=== PATIENT | male | born 1980 | race Caucasian/White ===

== ENCOUNTER 2016-06-24 17:10 | Emergency (ER) ==
[2016-06-24 17:17] VITALS: BP 142/91; TEMP 99.1; BMI 28.8
--- NOTE | 2016-06-24 17:33 | ED.PDOC ---
General ED Provider: Dr. JLUIS VICENTE Chief Complaint: Puncture Wound Stated Complaint: Stepped on 2 X 4 that had nail pointed up - went thru shoe into foot. Time Seen by Physician: 17:25 Mode of Arrival: Walk-In Information Source: Patient Primary Care Provider: ALESSANDRO SINGER Nursing and Triage Documentation Reviewed and Agree: Yes Review of Systems - Review Of Systems Constitutional: Reports: No symptoms Musculoskeletal: Reports: No symptoms Skin: Reports: Lesions (Ball of R foot - site consistent with small puncture wound) All Other Systems: Reviewed and Negative Past Medical History - Past Medical History Previously Healthy: Yes Endocrine: Reports: None Cardiovascular: Reports: None Respiratory: Reports: None Hematological: Reports: None Gastrointestinal: Reports: None Genitourinary: Reports: None Neuro/Psych: Reports: None Musculoskeletal: Reports: None Cancer: Reports: None - Surgical History General Surgical History: Reports: None - Family History Family History: Reports: Unknown - Social History Smoking Status: Former smoker Hx Substance Use: No Alcohol Screening: None - Immunizations Tetanus Shot up to Date: No Physical Exam - Physical Exam Appearance: Well-appearing Respiratory: Airway patent, Respirations nonlabored Musculoskeletal: Normal strength, ROM intact Skin: Warm, Dry, Normal color (Apparent site of puncture wound ball of R foot) Neurological: Sensation intact, Motor intact, Alert, Oriented Psychiatric: Affect appropriate, Mood appropriate Critical Care Note - Critical Care Note Total Time (mins): 7 Course - Course Orders, Labs, Meds: Orders Category Date Time Status Tetanus and Diphtheria Tox/Pf [Tenivac] MEDS 06/24/16 18:07 Discontinued 0.5 ml IM .ONCE ONE FOOT, RIGHT 3 VIEWS Stat RADS 06/24/16 17:31 Completed Medications Discontinued Medications Generic Name Dose Route Start Last Admin Trade Name Freq PRN Reason Stop Dose Admin Tetanus/Diphtheria Toxoids Adsorbed 0.5 ml 06/24/16 18:07 Tenivac IM 06/24/16 18:08 .ONCE ONE Vital Signs: Temp Pulse Resp BP Pulse Ox 06/24/16 17:11 99.1 F 100 H 20 142/91 H 96 Departure - Departure Time of Disposition: 18:13 Disposition: HOME SELF-CARE Discharge Problem: Puncture wound Instructions: Puncture Wound (ED) Condition: Good Pt referred to PMD for follow-up: Yes (call for appointment) Additional Instructions: Take antibiotic as prescribed; watch for signs of infection. Follow up with primary care as needed. Prescriptions: Cephalexin [Keflex] 500 mg PO 1-3XD #15 capsule Allergies/Adverse Reactions: Allergies No Known Allergies Allergy (Verified 06/24/16 17:18) Home Medications: Ambulatory Orders Cephalexin [Keflex] 500 mg PO 1-3XD #15 capsule 06/24/16 Disposition Discussed With: Patient
--- NOTE | 2016-06-24 17:59 | DI ---
EXAM: Right foot three views HISTORY: Puncture wound COMPARISON: None FINDINGS/IMPRESSION: The bones are normal. The joints are normal. Minimal soft tissue asymmetry td maribell aspect of the forefoot, may represent an area of soft tissue injury/puncture. Clinical correlat ion recommended. No radiopaque foreign body.
[2016-06-24] MEDS ORDERED: TENIVAC IM ONE (18:07)
== END 2016-06-24 18:45 | disposition home or self-care (01) ==
LOC: ED 17:10
DX: S91.331A Puncture wound without foreign body, right foot, initial encounter (principal); W45.0XXA Nail entering through skin, initial encounter
CPT/HCPCS: 90471; 99283

== ENCOUNTER 2016-07-05 15:34 | Outpatient (CLI) ==
--- NOTE | 2016-07-05 16:55 | US ---
Examination: Hussein-scale and color Doppler ultrasonographic evaluation of the penis. Comparison: None available. Reason for study: Mass. FINDINGS: Hussein scale and color Doppler images were taken of the penile parenchyma in the region of the patient's concern. No discrete mass lesion or abnormal vascularity is seen. Impression: No ultrasonographic evidence of discrete mass lesion or vascular abnormality is seen within the peni s.
== END 2016-07-05 15:35 | disposition home or self-care (01) ==
LOC: RAD 15:34
PROVIDERS: ATTEND Physician Assistant Medical
DX: R19.09 Other intra-abdominal and pelvic swelling, mass and lump (principal)

== ENCOUNTER 2017-02-02 18:54 | Emergency (ER) ==
[2017-02-02 19:02] VITALS: BP 127/86; TEMP 98; BMI 27.8
[2017-02-02] MEDS ORDERED: NORCO 5-325 PO STA (19:31)
[2017-02-02] MEDS ORDERED: MOTRIN PO STA (19:31)
--- NOTE | 2017-02-02 19:44 | ED.PDOC ---
General ED Provider: Dr. RK LICONA Chief Complaint: Hand Pain/Injury Stated Complaint: Patient states that while at [employer] while trying to lift some piece of wood it rolled and hit his righth hand yesterday. Pain is worse today. Took Tylenol# 3 this morning. Time Seen by Physician: 19:30 Mode of Arrival: Walk-In Information Source: Patient Exam Limitations: No limitations Primary Care Provider: ALESSANDRO SINGER Nursing and Triage Documentation Reviewed and Agree: Yes Musculoskeletal Complaint Exam - Hand/Wrist Complaint/Exam Location of Pain: Reports: Right, Hand Mechanism of Injury: Reports: Trauma Onset/Duration: yesterday Symptoms Are: Still present Onset of Pain: Reports: Immediate Initial Severity: Severe Current Severity: Moderate Location: Reports: Discrete (5th metacarpal ) Character: Reports: Aching, Throbbing Alleviating: Reports: None Aggravating: Reports: Movement Associated Signs and Symptoms: Reports: Swelling, Bruising Dominant Hand: Right Related Surgical History: Reports: None Hand/Wrist Findings: Present: Swelling Tenderness: Present: Metacarpal Compartment Syndrome Risk Factors: Present: Pain. Absent: Paralysis, Pallor, Pulselessness, Paresthesias Hand Picture: 1 - pain tenderness and bruizing Differential Diagnoses: Contusion, Closed Fracture, Sprain, Strain Review of Systems - Review Of Systems Constitutional: Reports: No symptoms Eyes: Reports: No symptoms Ears, Nose, Mouth, Throat: Reports: No symptoms Respiratory: Reports: No symptoms Cardiac: Reports: No symptoms GI: Reports: No symptoms : Reports: No symptoms Musculoskeletal: Reports: Joint pain, Joint swelling, Muscle stiffness Skin: Reports: Bruising Neurological: Reports: No symptoms All Other Systems: Reviewed and Negative Past Medical History - Past Medical History Previously Healthy: Yes Endocrine: Reports: None Cardiovascular: Reports: None Respiratory: Reports: None Hematological: Reports: None Gastrointestinal: Reports: None Genitourinary: Reports: None Neuro/Psych: Reports: None Musculoskeletal: Reports: None Cancer: Reports: None - Surgical History General Surgical History: Reports: None - Family History Family History: Reports: Unknown - Social History Smoking Status: Current every day smoker, Heavy tobacco smoker Hx Substance Use: No Alcohol Screening: None Physical Exam - Physical Exam Appearance: Well-appearing, No pain distress, Well-nourished Eyes: NETTE, EOMI, Conjunctiva clear ENT: Ears normal, Nose normal, Oropharynx normal Respiratory: Airway patent, Breath sounds clear, Breath sounds equal, Respirations nonlabored Cardiovascular: RRR, Pulses normal, No rub, No murmur GI/: Soft, Nontender, No masses, Bowel sounds normal, No Organomegaly Musculoskeletal: Limited ROM Skin: Warm, Dry, Normal color Neurological: Sensation intact, Motor intact, Reflexes intact, Cranial nerves intact, Alert, Oriented Psychiatric: Anxious Interpretation - Radiology Interpretation Radiology Interpretation By: ED Physician Radiology Results: Negative Exam Interpreted: Other (hand x-ray ) Critical Care Note - Critical Care Note Total Time (mins): 0 Course - Course Orders, Labs, Meds: Orders Category Date Time Status Splint [ED SPLINT APPLICATION] .ONCE EMERGENCY 02/02/17 20:53 Ordered Hydrocodone Bit/Acetaminophen [[place] 5-325] MEDS 02/02/17 19:31 Discontinued 1 tab PO ONCE STA Ibuprofen [Motrin] MEDS 02/02/17 19:31 Discontinued 800 mg PO ONCE STA HAND, RIGHT 3 VIEWS Stat RADS 02/02/17 19:28 Taken Medications Discontinued Medications Generic Name Dose Route Start Last Admin Trade Name Olayinka PRN Reason Stop Dose Admin Acetaminophen/Hydrocodone Bitart 1 tab 02/02/17 19:31 02/02/17 19:51 [place] 5-325 PO 02/02/17 19:32 1 tab ONCE STA Administration Ibuprofen 800 mg 02/02/17 19:31 02/02/17 19:50 Motrin PO 02/02/17 19:32 800 mg ONCE STA Administration Vital Signs: Temp Pulse Resp BP Pulse Ox 02/02/17 18:54 98.0 F 87 20 127/86 96 Departure - Departure Time of Disposition: 20:51 Disposition: HOME SELF-CARE Discharge Problem: Right wrist sprain Qualifiers: Encounter type: initial encounter Qualified Code(s): S63.501A - Unspecified sprain of right wrist, initial encounter Instructions: Wrist Sprain (ED) Condition: Fair Pt referred to PMD for follow-up: Yes Additional Instructions: Take Motrin as needed Follow up with PCP in 3-5 days Rest Use splint for comfort to allow it to heal. Prescriptions: Ibuprofen [Motrin] 600 mg PO Q6H PRN #30 tablet PRN Reason: Analgesia Allergies/Adverse Reactions: Allergies No Known Allergies Allergy (Verified 02/02/17 19:02) Home Medications: Ambulatory Orders Dextroamphetamine/Amphetamine [Adderall 10 mg Tablet] 10 mg PO DAILY 02/02/17 Ibuprofen [Motrin] 600 mg PO Q6H PRN #30 tablet 02/02/17 Disposition Discussed With: Patient, Family
--- NOTE | 2017-02-03 07:42 | DI ---
EXAM: Radiographs, right hand HISTORY: Initial presentation for right hand trauma at the fifth metacarpal. COMPARISON: None available. TECHNIQUE: Three views. FINDINGS/IMPRESSION: Old healed fracture deformity of the fifth metacarpal noted. No acute fracture or dislocation identi fied. No localized soft tissue abnormality detected
== END 2017-02-02 20:58 | disposition home or self-care (01) ==
LOC: ED 18:54
DX: S63.501A Unspecified sprain of right wrist, initial encounter (principal); W22.8XXA Striking against or struck by other objects, initial encounter; Y92.512 Supermarket, store or market as the place of occurrence of the external cause; F17.210 Nicotine dependence, cigarettes, uncomplicated
CPT/HCPCS: 99283

== ENCOUNTER 2022-09-23 09:52 | Observation (INO) ==
[2022-09-23 10:25] LABS: BASOPHILS % (AUTO) 0.2 % (0.0-3.0); EOSINOPHILS # (AUTO) 0.2 K/ul (0.0-0.7); EOSINOPHILS % (AUTO) 1.6 % (0.0-7.0); HEMATOCRIT 43.7 % (42.0-52.0); IMMATURE GRANULOCYTE % (AUTO) 0.3 % (0.0-5.0); LYMPHOCYTES # (AUTO) 2.6 K/uL (0.60-3.4); LYMPHOCYTES % (AUTO) 23.2 (10.0-50.0); MEAN CORPUSCULAR HEMOGLOBIN 29.5 pg (27.0-31.0); MEAN CORPUSCULAR HGB CONC 34.3 (31.8-35.4); MONOCYTES # (AUTO) 0.8 K/uL (0.4-2.0); MONOCYTES % (AUTO) 7.3 (0-10); NEUTROPHILS # (AUTO) 7.4 K/ul (2.0-6.9); NEUTROPHILS % (AUTO) 67.4 % (42.2-75.2); PLATELET COUNT 218 10^3/uL (140-440); RDW COEFFICIENT OF VARIATION 13.1 % (11.6-14.8); RED BLOOD COUNT 5.08 10^6/ul (4.70-6.10); WHITE BLOOD COUNT 11.04 K/ul (4.2-10.2)
--- NOTE | 2022-09-23 10:31 | ED.PDOC ---
General ED Provider: Dr. DAVION LUCIANO MD Chief Complaint: Arrhythmia Stated Complaint: fast heart rate on my apple watch Time Seen by Provider: 09/23/22 10:08 Information Source: Patient Primary Care Provider: TAWNYA MACKEY Nursing and Triage Documentation Reviewed and Agree: Yes Does patient meet sepsis criteria?: No System Inflammatory Response Syndrome: Not Applicable Sepsis Protocol: For patient's 13 years and over: Temp is 96.8 and below OR 101 and greater Pulse >90 BPM Resp >20/minute Acutely Altered Mental Status Are patient's symptoms suggestive of a new infection, such as: -Pneumonia -Skin, Soft Tissue -Endocarditis -UTI -Bone, Joint Infection -Implantable Device -Acute Abdominal Infection -Wound Infection -Meningitis -Blood Stream Catheter Infection -Unknown Cardiovascular Complaint Exam Palpitations Complaint/Exam Onset/Duration: one hour Symptoms Are: Resolved Timing: Intermittent Initial Severity: Moderate Current Severity: None Aggravating: Reports Exertion Alleviating: Reports Rest Associated Signs and Symptoms: Denies Lightheadedness, Syncope, Chest pain, Shortness of breath, Diaphoresis, Nausea or Vomiting Cardiac Risk Factors: Reports Smoking, Family history and Prior OR Pulmonary Embolism Risk Factors: Reports Smoking Review of Systems Review Of Systems Constitutional: Reports No symptoms Cardiac: Reports Palpitations All Other Systems: Reviewed and Negative [facility] Medical History Hypercholesteremia E78.00 - Pure hypercholesterolemia, unspecified (ICD-10) Hypertension I10 - Essential (primary) hypertension (ICD-10) Kidney stones N20.0 - Calculus of kidney (ICD-10) Family History FATHER Heart attack BROTHER LVAD (left ventricular assist device) present BROTHER Diabetes Social History Smoking and tobacco status: Current every day smoker Tobacco type: cigarettes Smoking packs per day: 1.2 Smoking cigarettes per day: 24.0 Years smoked: 35 Smoking pack-years: 42.00 Tobacco: How many years used: 35 Alcohol intake: never Substance use type: does not use Physical Exam Physical Exam Appearance: Reports Well-appearing Ill-appearing: None Pain Distress: None Eyes: Reports NETTE and EOMI ENT: Reports Ears normal and Nose normal Neck: Supple Respiratory: Reports Airway patent, Breath sounds clear and Breath sounds equal Cardiovascular: Reports RRR, Pulses normal, No rub and No murmur GI/: Reports Soft, Nontender and No masses Musculoskeletal: Reports Normal strength and ROM intact Skin: Reports Warm and Normal color Neurological: Reports Sensation intact and Motor intact Psychiatric: Reports Affect appropriate Interpretation EKG Interpretation Time of EKG #1: 10:06 Rate: Normal Rhythm: Sinus Ectopy: None [place]: [place] Interpretation: normal pr, qrs interval, no signs of acute ischemia Critical Care Note Critical Care Note Total Critical Care Time (mins): 0 Course Course 09/23/22 10:21 09/23/22 10:21 Orders, Labs, Meds: Lab Review 09/23/22 10:21 WBC 11.04 H RBC 5.08 Hgb 15.0 Hct 43.7 MCV 86.0 MCH 29.5 MCHC 34.3 RDW Coeff of Jose Elias 13.1 Plt Count 218 Immature Gran % (Auto) 0.3 Neut % (Auto) 67.4 Lymph % (Auto) 23.2 [place] % (Auto) 7.3 Eos % (Auto) 1.6 Baso % (Auto) 0.2 Neut # (Auto) 7.4 H Lymph # (Auto) 2.6 [place] # (Auto) 0.8 Eos # (Auto) 0.2 Baso # (Auto) 0.0 Immature Gran # (Auto) 0.0 Sodium 138.2 Potassium 3.82 Chloride 106.8 Carbon Dioxide 24.1 Anion Gap 11.12 BUN 8.4 L Creatinine 0.87 Estimated GFR (MDRD) 97.00 BUN/Creatinine Ratio 9.65 Glucose 129.6 H Calcium 8.51 Total Bilirubin 0.36 AST 25.1 ALT 23.7 Alkaline Phosphatase 91.3 Total Creatine Kinase 134.2 CK-MB (CK-2) 1.120 CK-MB (CK-2) % 0.8300 Troponin I < 0.012 Total Protein 7.36 Albumin 4.38 Globulin 2.98 Albumin/Globulin Ratio 1.46 Orders Category Date Time Status ADMIT OBSERVATION [PLACE PATIENT OBSERVATION] .TO ADMISSION 09/23/22 11:58 Active MEDSURG (MONITORED BED) EKG-(ED ONLY) Stat CARDIO 09/23/22 10:02 Completed TELEMETRY MONITORING TELE CARE 09/23/22 11:58 Active CBC W/ AUTO DIFF Stat LAB 09/23/22 10:21 Completed COMPREHENSIVE METABOLIC PANEL Stat LAB 09/23/22 10:21 Completed CREATINE KINASE Stat LAB 09/23/22 10:21 Completed TROPONIN I Stat LAB 09/23/22 10:21 Completed Aspirin [Aspirin Chewable] Meds 09/23/22 10:44 Discontinued 324 mg PO ONCE ONE Hydralazine HCl Meds 09/23/22 11:31 Discontinued 10 mg IM ONCE STA Hydralazine HCl [Apresoline] Meds 09/23/22 10:45 Discontinued 50 mg PO ONCE STA CHEST, 1V AP ONLY Stat RADS 09/23/22 10:09 Completed Medications Generic Name Dose Route Start Last Admin Trade Name Freq PRN Reason Stop Dose Admin Acetaminophen 650 mg 09/23/22 17:22 09/23/22 17:41 Acetaminophen 325 Mg Tablet PO 650 mg Q6H PRN Administration pain Amlodipine Besylate 10 mg 09/23/22 21:00 09/23/22 20:39 Amlodipine Besylate 5 Mg Tablet PO 10 mg DAILY SURINDER Administration Sodium Chloride 1 syr 09/23/22 21:00 09/23/22 20:50 0.9% Sodium Chloride 10 Ml Disp.Syrin IVF 1 syr Q8HR SURINDER Administration Discontinued Medications Generic Name Dose Route Start Last Admin Trade Name Freq PRN Reason Stop Dose Admin Aspirin 324 mg 09/23/22 10:44 09/23/22 10:50 Aspirin 81 Mg Tab.Chew PO 09/23/22 10:45 324 mg ONCE ONE Administration Hydralazine HCl 50 mg 09/23/22 10:45 09/23/22 10:50 Hydralazine Hcl 50 Mg Tablet PO 09/23/22 10:46 50 mg ONCE STA Administration Hydralazine HCl 10 mg 09/23/22 11:31 09/23/22 11:35 Hydralazine Hcl 20 Mg/Ml Sdv IM 09/23/22 11:32 20 mg ONCE STA Administration Vital Signs: Temp Pulse Resp BP Pulse Ox 09/23/22 09:55 97.9 F 84 18 158/104 H 98 41 yo male came to ER for palpitations. Patient was moving some heavy objects and exerted himself and his apple watch alarmed for heart rate 150s. No chest pa in. Patient smokes 1/2 PPD and has FH of OR his father at age 35 and his brother at age 22. said that patient's mother told her he had OR in his 20s but patient denies. No chest pain. patient had echo and stress test done last year which was normal. Labs and CXR are unremarkable. Heartscore 1. case discussed with hospitalist Sreedhar to admit the patient under observation to trend troponin, she agreed to admit the patient under her services. DUANE Risk Score DUANE Risk Score: Risk Score Odds of by 30D 0 0.1 (0.1-0.2) 1 0.3 (0.2-0.3) 2 0.4 (0.3-0.5) 3 0.7 (0.6-0.9) 4 1.2 (1.0-1.5) 5 2.2 (1.9-2.6) 6 3.0 (2.5-3.6) 7 4.8 (3.8-6.1) Discharge Plan Discharge Patient Disposition: ADMITTED INPATIENT Discharge Problem: Palpitation, Chest pain Did you review [place] [employer] for ALL controlled substances?: Not Applicable ED Provider: DAVION LUCIANO Condition: Stable Physician Progress Note: []
[2022-09-23 10:36] LABS: ALANINE AMINOTRANSFERASE 23.7 U/L (0-50); ALBUMIN 4.38 g/dL (3.5-5.0); ALKALINE PHOSPHATASE 91.3 U/L (38-126); ASPARTATE AMINO TRANSFERASE 25.1 U/L (17-59); BILIRUBIN,TOTAL 0.36 mg/dL (0.2-1.3); BLOOD UREA NITROGEN 8.4 mg/dL (9-20); CALCIUM 8.51 mg/dL (8.4-10.2); CARBON DIOXIDE 24.1 mmol/L (22-30.0); CHLORIDE 106.8 mmol/L (98-107); CREATINE KINASE 134.2 U/L (55-170); CREATININE 0.87 mg/dL (0.60-1.10); GLUCOSE 129.6 mg/dL (74-106); POTASSIUM 3.82 mmol/L (3.5-5.1); SODIUM 138.2 mmol/L (134.5-145); TOTAL PROTEIN 7.36 g/dL (6.3-8.2)
[2022-09-23] MEDS ORDERED: ASPIRIN CHEWABLE PO ONE (10:44)
[2022-09-23] MEDS ORDERED: APRESOLINE PO STA (10:45)
--- NOTE | 2022-09-23 10:45 | DI ---
EXAM: CHEST RADIOGRAPH (1 VIEW) TECHNIQUE: Frontal Chest Radiograph. HISTORY: Pain COMPARISON: 12/23/2021. FINDINGS: Lines, Tubes, Devices: None Lungs and Pleura: No focal consolidation. No pleural effusion. No pneumothorax. Cardiac silhouette: Normal. Bones: No acute abnormality. IMPRESSION: No acute radiographic abnormality.
[2022-09-23 10:53] LABS: TROPONIN I < 0.012 ng/ml (0.0000-0.120)
[2022-09-23] MEDS ORDERED: HYDRALAZINE HCL IM STA (11:31)
[2022-09-23 12:48] VITALS: BMI 29.5
--- NOTE | 2022-09-23 13:19 | PCM ---
Date of Service Date Seen by Provider: 09/23/22 Time Seen by Provider: 13:19 Admit Day/Time Admission Date: 09/23/22 Admission Time: 11:58 Reason for Admission Chief Complaint: CHEST PAIN, PALPITATIONS Hospital Provider Hospital Provider: SREEDHAR ROTH PA-C, [facility] [place] Primary Care Physician Primary Care Physician: TAWNYA MACKEY History of Present Illness History of Present Illness: Patient is a 41-year-old male with past medical history of hypertension who presented to the ER with chief complaint of palpitations. He states that he was moving concrete blocks about 30 of them when his Apple Watch indicated that his heart rate was 150. He denies feeling any palpitations but states he may have had some chest tightness during this. He also had some low back pain while doing this. His boss made him get evaluated. He states his heart rate remained elevated for about 35 minutes. In the ER he was noted to have normal vitals. Labs and chest x-ray normal. However patient has a very significant family history and the ER provider felt he needed to be observed. On my evaluation the patient is lying in bed comfortably. He denies any chest pain palpitation shortness of breath. He states this is never happened to him. He states he has a history of hypertension that has been uncontrolled recently on his current regimen. He has had a recent stress test and echo within the last 6 months at [facility]. He does have a very significant family history. He states that his dad started having heart attacks in his 30s. He states that his brother started having heart issues in his 20s and recently in his 40s. He states that he had an LVAD. He does not know details on the heart condition. Patient smokes half pack a day. States he has a history of hyperlipidemia but he was unable to tolerate a statin due to muscle pain. Will admit to observation and trend tropes and EKGs. Case Discussed With Case Discussed With: Patient's case was discussed with the ER Physicians, Dr. John Sayed [facility] Medical History Hypercholesteremia E78.00 - Pure hypercholesterolemia, unspecified (ICD-10) Hypertension I10 - Essential (primary) hypertension (ICD-10) Kidney stones N20.0 - Calculus of kidney (ICD-10) Family History FATHER Heart attack BROTHER LVAD (left ventricular assist device) present BROTHER Diabetes Social History Smoking and tobacco status: Current every day smoker Tobacco type: cigarettes Smoking packs per day: 1.2 Smoking cigarettes per day: 24.0 Years smoked: 35 Smoking pack-years: 42.00 Tobacco: How many years used: 35 Alcohol intake: never Substance use type: does not use Allergies Allergies Allergy/AdvReac Type Severity Reaction Status Date / Time No Known Allergies Allergy Verified 09/23/22 09:57 Current Medications Home Medications amlodipine 5 mg tablet 7.5 mg PO BEDTIME 09/23/22 [History Confirmed 09/23/22 Last Taken Unknown] Home Discontinued Medications Aspirin (Aspirin 81 Mg Tab.Chew) 324 mg PO ONCE ONE Stop: 09/23/22 10:45 Last Admin: 09/23/22 10:50 Dose: 324 mg Hydralazine HCl (Hydralazine Hcl 50 Mg Tablet) 50 mg PO ONCE STA Stop: 09/23/22 10:46 Last Admin: 09/23/22 10:50 Dose: 50 mg Hydralazine HCl (Hydralazine Hcl 20 Mg/Ml Sdv) 10 mg IM ONCE STA Stop: 09/23/22 11:32 Last Admin: 09/23/22 11:35 Dose: 20 mg Review of Systems Constitutional: Denies Fever, Weakness or Sweats Head: Reports Normocephalic and Atraumatic Eyes: Denies Vision Changes Ears: Denies Pain or Drainage Nose: Denies Post Nasal Drip or Congestion Mouth: Denies Sores Throat: Denies Sore Throat or Difficulty Swallowing Cardiovascular: Reports Chest Pressure; Denies Chest pain, Edema or Palpitations (+increased HR) Respiratory: Denies Cough or Shortness of air Gastrointestinal: Denies Nausea, Vomiting or Abdominal pain Genitourinary: Denies Dysuria Musculoskeletal: Denies Muscle Pain Dermatologic: Denies Rashes Neurological: Denies Headache, Dizziness, Syncope, Loss of Conciousness or Seizure Psychiatric: Denies Depression or Anxiety Physical examination Most Recent Vital Signs: Most Recent Vital Signs Temperature 97.8 F 09/23/22 12:34 Temperature Source Oral 09/23/22 12:34 Temperature Source Infrared 09/23/22 09:55 Pulse Rate 63 09/23/22 12:34 Respiratory Rate 16 09/23/22 12:34 Blood Pressure 156/87 H 09/23/22 12:21 Blood Pressure Left Arm 148/87 09/23/22 12:34 Blood Pressure Position Sitting 09/23/22 12:34 O2 Sat by Pulse Oximetry 100 09/23/22 12:34 Oxygen Delivery Method Room Air 09/23/22 12:34 Height 5 ft 7 in 09/23/22 12:34 Weight 188 lb 11.2 oz 09/23/22 12:34 Telemetry Type Remote Telemetry 09/23/22 13:00 Telemetry Monitoring Started 09/23/22 13:00 Telemetry Heart Rate 75 09/23/22 13:00 EKG IN Interval 0.18 09/23/22 13:00 EKG QRS Interval 0.08 09/23/22 13:00 Telemetry Strip Reading SR 09/23/22 13:00 Appearance: Positive Well-appearing, Well-nourished and Alert and Oriented x3 Skin: Positive [place], Warm, Good Turgor and Good Color; Negative Rashes HEENT: Positive Normocephalic and Atraumatic Neck: Positive Supple and Midline Trachea Chest/Lungs: Positive Symmetrical With Equal Breath Sounds and Clear to Auscultation Bilaterally; Negative Rales, Rhonci or Wheezes Heart: Positive RRR; Negative Tachycardia or Abnormal Pulses GI/: Positive Soft, Nontender, Bowel Sounds Normal and No Distention Musculoskeletal: Positive Normal Gait and Station Extremities: Negative Edema Neurological: Positive Muscle Strength 5/5 in Upper and Lower Extremities Bilaterally Psychiatric: Positive Oriented x4, Appropriate Mood and Appropriate Affect Labs This Visit Labs This Visit: Labs This Visit 09/23/22 10:21 WBC 11.04 H RBC 5.08 Hgb 15.0 Hct 43.7 MCV 86.0 MCH 29.5 MCHC 34.3 RDW Coeff of Jose Elias 13.1 Plt Count 218 Immature Gran % (Auto) 0.3 Neut % (Auto) 67.4 Lymph % (Auto) 23.2 [place] % (Auto) 7.3 Eos % (Auto) 1.6 Baso % (Auto) 0.2 Neut # (Auto) 7.4 H Lymph # (Auto) 2.6 [place] # (Auto) 0.8 Eos # (Auto) 0.2 Baso # (Auto) 0.0 Immature Gran # (Auto) 0.0 Sodium 138.2 Potassium 3.82 Chloride 106.8 Carbon Dioxide 24.1 Anion Gap 11.12 BUN 8.4 L Creatinine 0.87 Estimated GFR (MDRD) 97.00 BUN/Creatinine Ratio 9.65 Glucose 129.6 H Calcium 8.51 Total Bilirubin 0.36 AST 25.1 ALT 23.7 Alkaline Phosphatase 91.3 Total Creatine Kinase 134.2 CK-MB (CK-2) 1.120 CK-MB (CK-2) % 0.8300 Troponin I < 0.012 Total Protein 7.36 Albumin 4.38 Globulin 2.98 Albumin/Globulin Ratio 1.46 Imaging Imaging: EXAM: CHEST RADIOGRAPH (1 VIEW) TECHNIQUE: Frontal Chest Radiograph. HISTORY: Pain COMPARISON: 12/23/2021. FINDINGS: Lines, Tubes, Devices: None Lungs and Pleura: No focal consolidation. No pleural effusion. No pneumothorax. Cardiac silhouette: Normal. Bones: No acute abnormality. IMPRESSION: No acute radiographic abnormality. Review Statement Review Statement: I have independently reviewed and interpreted the labs/EKGs/imaging that were ordered by the ER provider. I have reviewed all outside records that are available currently in our EMR including imaging/notes/labs from previous visits. Plan Plan: 1. Chest tightness: Initial EKG and trop negative. Repeat trop and ekgs q8hrs x2. Please request echo and stress test results from [facility]. ASA given in ER. Tele. 2. Hypertension - Increase amlodipine to 10 mg daily. 3. Hyperlipidemia - Cannot tolerate statin DVT Prophylaxis: Ambulation Time Spent: Greater than 80 minutes spent with patient, 50% of the time spent with this patient was devoted to counseling and coordination of care. Advanced Care Planning: FULL CODE 3 - minutes spent discussing advance care planning. Smoking Cessation: 3 minutes spent discussing smoking cessation. Admit to: Observation Discussed Plan of Care with Dr. Shiva Puckett.
[2022-09-23] MEDS ORDERED: TYLENOL PO PRN (17:22)
[2022-09-23 18:46] LABS: MAGNESIUM 1.98 mg/dL (1.6-2.3)
[2022-09-23 19:16] LABS: TROPONIN I < 0.012 ng/ml (0.0000-0.120)
[2022-09-23 19:17] LABS: THYROID STIMULATING HORMONE 0.772 uIU/L (0.465-4.68)
[2022-09-23] MEDS: NORVASC PO SCH (20:39)
[2022-09-24 02:39] LABS: BASOPHILS % (AUTO) 0.2 % (0.0-3.0); EOSINOPHILS # (AUTO) 0.3 K/ul (0.0-0.7); EOSINOPHILS % (AUTO) 3.5 % (0.0-7.0); HEMATOCRIT 45.2 % (42.0-52.0); HEMOGLOBIN 15.3 g/dl (14.0-18.0); IMMATURE GRANULOCYTE % (AUTO) 0.2 % (0.0-5.0); LYMPHOCYTES # (AUTO) 3.1 K/uL (0.60-3.4); LYMPHOCYTES % (AUTO) 35.4 (10.0-50.0); MEAN CORPUSCULAR HEMOGLOBIN 29.5 pg (27.0-31.0); MEAN CORPUSCULAR HGB CONC 33.8 (31.8-35.4); MEAN CORPUSCULAR VOLUME 87.1 fl (80.0-94.0); MONOCYTES # (AUTO) 0.8 K/uL (0.4-2.0); MONOCYTES % (AUTO) 9.6 (0-10); NEUTROPHILS # (AUTO) 4.4 K/ul (2.0-6.9); NEUTROPHILS % (AUTO) 51.1 % (42.2-75.2); PLATELET COUNT 217 10^3/uL (140-440); RDW COEFFICIENT OF VARIATION 13.5 % (11.6-14.8); RED BLOOD COUNT 5.19 10^6/ul (4.70-6.10); WHITE BLOOD COUNT 8.61 K/ul (4.2-10.2)
[2022-09-24 02:51] LABS: ALANINE AMINOTRANSFERASE 22.9 U/L (0-50); ALBUMIN 3.98 g/dL (3.5-5.0); ALKALINE PHOSPHATASE 92.1 U/L (38-126); ASPARTATE AMINO TRANSFERASE 23.6 U/L (17-59); BILIRUBIN,TOTAL 0.33 mg/dL (0.2-1.3); BLOOD UREA NITROGEN 12.9 mg/dL (9-20); CALCIUM 8.35 mg/dL (8.4-10.2); CARBON DIOXIDE 24.4 mmol/L (22-30.0); CHLORIDE 112.8 mmol/L (98-107); CREATININE 1.08 mg/dL (0.60-1.10); GLUCOSE 104.6 mg/dL (74-106); POTASSIUM 4.03 mmol/L (3.5-5.1); SODIUM 140.9 mmol/L (134.5-145); TOTAL PROTEIN 6.89 g/dL (6.3-8.2)
[2022-09-24 03:03] LABS: TROPONIN I < 0.012 ng/ml (0.0000-0.120)
[2022-09-24 05:15] VITALS: TEMP 97.9
[2022-09-24] MEDS: NORVASC PO SCH (08:29)
--- NOTE | 2022-09-24 10:27 | DCSUM ---
Admission Date Admission Date: 09/23/22 Discharge Date Discharge Date: 09/24/22 Admission Diagnosis Admission Diagnosis: 1. Chest tightness Discharge Diagnosis Discharge Diagnosis: 1. Chest tightness and tachycardia, resolved 2. Hypertension, stable, chronic 3. Family history of heart disease 4. Hyperlipidemia 5. Tobacco dependence Hospital Provider Hospital Provider: SREEDHAR ROTH PA-C, [facility] Primary Care Physician Primary Care Physician: TAWNYA MACKEY Summary of History and Physical Summary of History and Physical: Patient is a 41-year-old male with past medical history of hypertension who presented to the ER with chief complaint of palpitations. He states that he was moving concrete blocks about 30 of them when his Apple Watch indicated that his heart rate was 150. He denies feeling any palpitations but states he may have had some chest tightness during this. He also had some low back pain while doing this. His boss made him get evaluated. He states his heart rate remained elevated for about 35 minutes. In the ER he was noted to have normal vitals. Labs and chest x-ray normal. However patient has a very significant family history and the ER provider felt he needed to be observed. On my evaluation the patient is lying in bed comfortably. He denies any chest pain palpitation shortness of breath. He states this is never happened to him. He states he has a history of hypertension that has been uncontrolled recently on his current regimen. He has had a recent stress test and echo within the last 6 months at [facility]. He does have a very significant family history. He states that his dad started having heart attacks in his 30s. He states that his brother started having heart issues in his 20s and recently in his 40s. He states that he had an LVAD. He does not know details on the heart condition. Patient smokes half pack a day. States he has a history of hyperl ipidemia but he was unable to tolerate a statin due to muscle pain. Will admit to observation and trend tropes and EKGs. Hospital Course Subjective: Patient's tropes were negative. EKGs were trended with no changes. He had no chest tightness or tachycardia. Thought to be due to exertion. Stress echo from December 15, 2021 was normal. Continue outpatient follow-up. Discussed red flags and when to return. Will increase amlodipine to 10 mg daily. Advised to check blood pressure once daily and keep a log to show PCP. Counseled on smoking cessation. Patient agrees to plan of care. Appearance: Pleasant, No Apparent Distress, Alert and Well-appearing HEENT: MMM CVS: No Murmur, No Rubs and No Gallop Abdomen: Soft, Non-Tender and No Distention Respiratory: No Dyspnea Extremities: No Edema Vital Signs: Most Recent Vital Signs Temperature 97.9 F 09/24/22 05:14 Temperature Source Temporal Artery Scan 09/24/22 05:14 Temperature Source Infrared 09/23/22 09:55 Pulse Rate 72 09/24/22 05:14 Respiratory Rate 16 09/24/22 05:14 Blood Pressure 118/82 09/24/22 05:14 Blood Pressure Mean 94 09/24/22 05:14 Blood Pressure Left Arm 148/87 09/23/22 12:34 Blood Pressure Location Left Arm 09/24/22 05:14 Blood Pressure Position Supine 09/24/22 05:14 O2 Sat by Pulse Oximetry 99 09/24/22 05:14 Oxygen Delivery Method Room Air 09/24/22 05:14 Height 5 ft 7 in 09/23/22 12:34 Weight 188 lb 11.2 oz 09/23/22 12:34 Telemetry Type Remote Telemetry 09/24/22 07:00 Telemetry Monitoring Continues 09/24/22 07:00 Telemetry Heart Rate 66 09/24/22 07:00 EKG LA Interval 0.22 H 09/24/22 07:00 EKG QRS Interval 0.10 09/24/22 07:00 Telemetry Strip Reading SR WITH 1ST DEGREE AVB 09/24/22 07:00 Imaging: EXAM: CHEST RADIOGRAPH (1 VIEW) TECHNIQUE: Frontal Chest Radiograph. HISTORY: Pain COMPARISON: 12/23/2021. FINDINGS: Lines, Tubes, Devices: None Lungs and Pleura: No focal consolidation. No pleural effusion. No pneumothorax. Cardiac silhouette: Normal. Bones: No acute abnormality. IMPRESSION: No acute radiographic abnormality. Lab Results Last 24 Hours: 09/24/22 09/23/22 09/23/22 02:35 18:24 10:21 WBC 8.61 11.04 H RBC 5.19 5.08 Hgb 15.3 15.0 Hct 45.2 43.7 MCV 87.1 86.0 MCH 29.5 29.5 MCHC 33.8 34.3 RDW Coeff of Jose Elias 13.5 13.1 Plt Count 217 218 Immature Gran % (Auto) 0.2 0.3 Neut % (Auto) 51.1 67.4 Lymph % (Auto) 35.4 23.2 Dyer % (Auto) 9.6 7.3 Eos % (Auto) 3.5 1.6 Baso % (Auto) 0.2 0.2 Neut # (Auto) 4.4 7.4 H Lymph # (Auto) 3.1 2.6 Dyer # (Auto) 0.8 0.8 Eos # (Auto) 0.3 0.2 Baso # (Auto) 0.0 0.0 Immature Gran # (Auto) 0.0 0.0 Sodium 140.9 138.2 Potassium 4.03 3.82 Chloride 112.8 H 106.8 Carbon Dioxide 24.4 24.1 Anion Gap 7.73 11.12 BUN 12.9 8.4 L Creatinine 1.08 0.87 Estimated GFR (MDRD) 75.00 97.00 BUN/Creatinine Ratio 11.94 9.65 Glucose 104.6 129.6 H Calcium 8.35 L 8.51 Magnesium 1.98 Total Bilirubin 0.33 0.36 AST 23.6 25.1 ALT 22.9 23.7 Alkaline Phosphatase 92.1 91.3 Total Creatine Kinase 134.2 CK-MB (CK-2) 1.120 CK-MB (CK-2) % 0.8300 Troponin I < 0.012 < 0.012 < 0.012 Total Protein 6.89 7.36 Albumin 3.98 4.38 Globulin 2.91 2.98 Albumin/Globulin Ratio 1.36 1.46 TSH 0.772 Discharge Instructions Discharge Planning: Discharge Planning > 60 minutes Discharge Medications: Medications at Discharge (Home Meds & RX) amlodipine 5 mg tablet 7.5 mg PO BEDTIME 09/23/22 Discharge Plan Discharge Discharge Orders: Discharge Patient (ONCE); Ordered 09/24/22 Ordered By: SREEDHAR ROTH Activity Restrictions/Additional Instructions: DISCHARGE TO HOME DX: CHEST TIGHTNESS, TACHYCARDIA PHARMACY: [facility] F/Jesse WITH PCP IN 1 WEEK KEEP LOG OF BLOOD PRESSURES AT HOME DIET: HEART HEALTHY ACTIVITY: TOLERATED STOP SMOKING Instructions: Chest Pain (GEN) Patient Disposition: HOME SELF-CARE Prescriptions: New amlodipine 10 mg tablet 10 mg PO DAILY Qty: 30 0RF Discontinued amlodipine 5 mg tablet 7.5 mg PO BEDTIME Patient Comments: TAKE 1 AND 1/2 TABLETS BY MOUTH EVERY DAY Did you review [place] [employer] for ALL controlled substances?: Not Applicable Discussed opioids are addictive and Narcan is available by prescription or from pharmacy.: No Condition: Stable
[2022-09-24 10:40] VITALS: BP 136/90; RESP 18
== END 2022-09-24 11:35 | disposition home or self-care (01) ==
LOC: ED 09:52 → MEDSURG B 09:52
PROVIDERS: ADMIT Hospitalist; ATTEND Physician Assistant
DX: R00.0 Tachycardia, unspecified; R07.9 Chest pain, unspecified; I10 Essential (primary) hypertension; F17.210 Nicotine dependence, cigarettes, uncomplicated